=== PATIENT | female | born 2000 | race Hispanic/Latino ===

== ENCOUNTER 2022-08-13 15:54 | Emergency (ER) | payer OTHER ==
--- OUTSIDE RECORDS SUMMARY | 2022-08-13 16:01 | XMS REPORT | Continuity of Care Document ---
:2000 Author Organization [facility] t Address [facility] [place] [address] Care Team Providers Name Role Phone ANGIE MEDINA Primary Care Physician Unavailable CAMERON GONZALES Attending Clinician Unavailable Trimester, [facility] Attending Clinician Unavailable Cameron Gnozales MD Attending Clinician RAYMOND PASTOR Attending Clinician Unavailable Raymond Pastor MD Attending Clinician LULI GRACIA Attending Clinician Unavailable Ultrasound, Chandan-m Attending Clinician Unavailable Marianne Barth MD Attending Clinician MARIANNE BARTH Attending Clinician Unavailable MARIANNE BARTH Attending Clinician Unavailable Trinh Mayen CNM Attending Clinician Nieves Luli COBB Attending Clinician [phone] Provider, [facility] Temp Attending Clinician Unavailable TRINH MAYEN Attending Clinician Unavailable Doctor Unassigned, [place] Attending Clinician Unavailable Cameron Gonzales MD Admitting Clinician CAMERON GONZALES Admitting Clinician Unavailable Payers Payer Name Policy Type Policy Number Effective Date Expiration Date [facility] [id number] 2022 CHOICE [place] STAR 00:00:00 Problems Condition Condition Condition Status Onset Resolution Last Treating Co mments Source Name Details Category Date Date Treatment Clinician Date Missed Missed Disease Active 2021-07 Overview: Univer s Formattin ity of 00:00: g of this [place] 00 note Medical might be Branch different from the original. 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 Papanicola Papanicola Repeat 1 ou smear ou smear year of cervix of cervix Tobacco Tobacco Disease Active 2021-07 Overview: Univ ers smoking smoking 2- Formattin ity o f affecting affecting 00:00: [place] of this [place] 00 note Medi steven might be Branch different from the original. Quit 2 Rubella Rubella Disease Active 2021-07 Univers non-immune non-immune 2-11 it y of status, status, 00:00: [place] antepartum antepartum 00 Me dical Branch Chlamydia Chlamydia Disease Active 2021-07 Uni vers infection infection 2-11 [place] 00 [facility] Branch GBS (group GBS (group Disease Active 2021-07 U nivers B B 2-11 ity of streptococ streptococ [place] c[place] UTI cus) UTI 00 Medica l complicati complicati Br anch ng ng Allergies, Adverse Reactions, Alerts Allergy Allergy Status Severity Reaction(s) Onset Inactive Treating Comm ents Source Name Type Date Date Clinician NO KNOWN Drug Active Univers ALLERGIE Class ity of S [facility] Social History Social Habit Start Date Stop Date Quantity Comments Source ASSERTION 2022-05-10 University of 00:00:[address] [facility] History of Cigarette Smoker Universi ty of tobacco use [facility] Alcohol intake 2022-08-07 2022-08-07 Ex-drinker University of 00:00:00 00:00:00 (finding) [facility] Exposure to 2022-07-14 2022-07-24 Not sure University SARS-CoV-2 00:00:00 07:56:00 [place] [facility] (event) Branch Tobacco use and 2022-06-14 2022-06-14 Smokeless tobacco Un iversity of exposure 00:00:00 00:00:00 non-user [facility] Alcohol Comment 2022-06-14 2022-06-14 stoped for Universit y of 00:00:00 00:00:[address] [facility] Sex Assigned At [birth year] Universit y of 00:00:00 00:00:[address] [facility] Smoking Status Start Date Stop Date Source Tobacco smoking [facility] xa consumption unknown Medical Bran ch Ex-smoker 2022-06-14 00:00:00 2022-06-14 [place] [facility] 00:00:00 [facility] Medications Ordered Filled Start Stop Current Ordering Indication Dosage Frequency Signature Comments Components Source Medication Medication Date Date Medication? Clinician (SIG) Name Name lactated Yes 1000mL at 75 Univer s ringers IV 1-03 mL/hr, ity of infusion 14:45: 1[place]000 [place] 1[place]000 [place] 00 IV Medical Infusion, Branch CONTINUOUS , Starting on Sat07/10/22 at 0845, Until Discontinu ed, Routine, PACU lactated 2022- No 1000mL at 75 Unive rs ringers IV 1-03 01-03 mL/hr, ity of infusion 14:45: 17:29 1,000 mL, [place] 1,000 mL 00 :36 IV Medical Infusion, Branch CONTINUOUS , Starting on Sat07/10/22 at 0845, Until Sat07/10/22 at 1129, Routine, PACU HYDROmorphO Yes .2mg 0.2 mg, Uni vers ne 1-03 Slow IV ity of (DILAUDID) 14:34: Push, [place] injection 16 Q5MIN PRN, Medi steven 0.2 mg 10 doses, Branch Starting on Sat07/10/22 at 0834, Until Discontinu ed, Routine, Pain (scale 7-10), PACU
Us e approved by (Faculty): PACU USE -ANESTHESI A SERVICE-HY DROMORPHON E INJECTIONS FENTanyl PF Yes 25ug 25 mcg, Uni vers (SUBLIMAZE 1-03 Slow IV ity of (PF)) 14:34: Push, [place] injection 16 Q5MIN PRN, Medi steven 25 mcg 4 doses, Branch Starting on Sat07/10/22 at 0834, Until Discontinu ed, Routine, Pain (scale 4-6), PACU proMETHazin Yes 12.5mg 12.5 mg, Univers e 07-10 IV ity of (PHENERGAN) 14:34: Piggyback, [place] 12.5 mg in 16 at 200 Medical NS 50 mL IV mL/hr Branch piggyback Administer (CNR) over 15 Minutes, PRN, 1 dose, Starting on Sat07/10/22 at 0834, Until Discontinu ed, Routine, Nausea and Vomiting (N/V), PACU HYDROmorphO 2022- No .2mg 0.2 mg, Un pretty ne 07-10 Slow IV ity of (DILAUDID) 14:34: 17:29 Push, [place] injection 16 :36 Q5MIN PRN, Medi steven 0.2 mg 10 doses, Branch Starting on Sat07/10/22 at 0834, Until Sat07/10/22 at 1129, Routine, Pain (scale 7-10), PACU
Us e approved by (Faculty): PACU USE -ANESTHESI A SERVICE-HY DROMORPHON E INJECTIONS FENTanyl PF 2022- No 25ug 25 mcg, Un pretty (SUBLIMAZE 07-10 Slow IV ity o f (PF)) 14:34: 17:29 Push, [place] injection 16 :36 Q5MIN PRN, Medi steven 25 mcg 4 doses, Branch Starting on Sat07/10/22 at 0834, Until Sat07/10/22 at 1129, Routine, Pain (scale 4-6), PACU proMETHazin 2022- No 12.5mg 12.5 mg, Univers e 07-10 IV ity of (PHENERGAN) 14:34: 17:29 Piggyback, [place] 12.5 mg in 16 :36 at 200 Medical NS 50 mL IV mL/hr Branch piggyback Administer (CNR) over 15 Minutes, PRN, 1 dose, Starting on Sat07/10/22 at 0834, Until Sat07/10/22 at 1129, Routine, Nausea and Vomiting (N/V), PACU doxycycline 2022-0 2023- No 200mg 200 mg, U nivers hyclate 1-03 Oral, O.R. ity o f (Vibramycin 10:47: 11:37 [place]ING [place] capsule 33 :00 ONCE, 1 Medical 200 mg dose, Branch Starting on Sat07/10/22 at 0447, Until Sat07/10/22 at 0537, KIET, Surgery/Pr ocedure, DSU Pre-op
Reason for Anti-Infec tive: Surgical Prophylaxi s
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
Duration of therapy: within 24 hours of surgery doxycycline 2022-0 202- No 200mg 200 mg, U nivers hyclate 07-1003 Oral, O.R. ity o f (Vibramycin 10:47: 11:37 [place]ING [place] capsule 33 :00 ONCE, 1 Medical 200 mg dose, Branch Starting on Sat07/10/22 at 0447, Until Sat07/10/22 at 0537, KIET, Surgery/Pr ocedure, DSU Pre-op
Reason for Anti-Infec tive: Surgical Prophylaxi s
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
Duration of therapy: within 24 hours of surgery ibuprofen 2022-0 Yes [id number] 600mg Take 1 Univers 600 mg 1-03 tablet by ity of tablet 00:00: mouth [place] 00 every 6 Medical (six) Branch hours as needed for Pain (scale 1-3) or Pain (scale 4-6). ibuprofen 2022-0 Yes [id number] 600mg Take 1 Univers 600 mg 1-03 tablet by ity of tablet 00:00: mouth [place] 00 every 6 Medical (six) Branch hours as needed for Pain (scale 1-3) or Pain (scale 4-6). ibuprofen 2022-0 Yes [id number] 600mg Take 1 Univers 600 mg 1-03 tablet by ity of tablet 00:00: mouth [place] 00 every 6 Medical (six) Branch hours as needed for Pain (scale 1-3) or Pain (scale 4-6). ibuprofen 2022-0 Yes [id number] 600mg Take 1 Univers 600 mg 1-03 tablet by ity of tablet 00:00: mouth [place] 00 every 6 Medical (six) Branch hours as needed for Pain (scale 1-3) or Pain (scale 4-6). ibuprofen 2022-0 Yes [id number] 600mg Take 1 Univers 600 mg 1-03 tablet by ity of tablet 00:00: mouth [place] 00 every 6 Medical (six) Branch hours as needed for Pain (scale 1-3) or Pain (scale 4-6). ibuprofen 0 Yes [id number] 600mg Take 1 Univers 600 mg 1-03 tablet by ity of tablet 00:00: mouth [place] 00 every 6 Medical (six) Branch hours as needed for Pain (scale 1-3) or Pain (scale 4-6). acetaminoph 2022- Yes [id number] 650mg Take 2 Univers en 1-03 01-11 tablets by ity of (TYLENOL) 00:00: 05:59 mouth [place] 325 mg 00 :00 every 6 Medical tablet (six) Branch hours as needed for Pain (scale 4-6) for up to 7 days. acetaminoph 2022- Yes [id number] 650mg Take 2 Univers en -03 01-11 tablets by ity of (TYLENOL) 00:00: 05:59 mouth [place] 325 mg 00 :00 every 6 Medical tablet (six) Branch hours as needed for Pain (scale 4-6) for up to 7 days. No known 2021-07 No No known Unive rs medications 2-30 medication it y of 14:02: [address] No known 2021-07 No No known Unive rs medications 2-30 medication it y of 14:02: [address] ampicillin 2021-07- Yes [id number] 500mg Take 1 Univers 500 mg 2-11 12-22 capsule by ity of capsule 00:00: 05:59 mouth [place] 00 :00 every 6 Medical (six) Branch hours for 10 days. ampicillin 2021-07- Yes [id number] 500mg Take 1 Univers 500 mg 2-11 12-22 capsule by ity of capsule 00:00: 05:59 mouth [place] 00 :00 every 6 Medical (six) Branch hours for 10 days. ampicillin 2021-07- Yes [id number] 500mg Take 1 Univers 500 mg 2-11 12-22 capsule by ity of capsule 00:00: 05:59 mouth [place] 00 :00 every 6 Medical (six) Branch hours for 10 days. ampicillin 2021-07- Yes [id number] 500mg Take 1 Univers 500 mg 2-11 12-22 capsule by ity of capsule 00:00: 05:59 mouth [place] 00 :00 every 6 Medical (six) Branch hours for 10 days. ampicillin 2021-07- Yes [id number] 500mg Take 1 Univers 500 mg 2-11 12-22 capsule by ity of capsule 00:00: 05:59 mouth [place] 00 :00 every 6 Medical (six) Branch hours for 10 days. ampicillin 2021-07- Yes [id number] 500mg Take 1 Univers 500 mg 2-11 12-22 capsule by ity of capsule 00:00: 05:59 mouth [place] 00 :00 every 6 Medical (six) Branch hours for 10 days. azithromyci 2021-07- Yes [id number] 1000mg Take 2 Univers n 2-11 12-12 tablets by ity of (ZITHROMAX) 00:00: 05:59 mouth once [place] 500 mg 00 :00 now for 1 Medical tablet dose. Branch No known 2021-07 No No known Unive rs medications 2-08 medication it y of 15:12: s [address] No known 2021-07 No No known Unive rs medications 2-08 medication it y of 15:12: s [address] No known 2021-07 No No known Unive rs medications 2-08 medication it y of 15:12: s [address] Immunizations Ordered Immunization Filled Immunization Date Status Commen ts Source Name Name Influenza Virus 2022-06-14 Completed Universit y of Vaccine [facility], 00:00:00 [place] Me dical Preserv and ABX Free Bran ch 6 MO-64 YRS Influenza Virus 2022-06-14 Completed Universit y of Vaccine [facility], 00:00:00 [place] Me dical Preserv and ABX Free Bran ch 6 MO-64 YRS Influenza Virus 2022-06-14 Completed Universit y of Vaccine [facility], 00:00:00 [place] Me dical Preserv and ABX Free Bran ch 6 MO-64 YRS Influenza Virus 2022-06-14 Completed Universit y of Vaccine [facility], 00:00:00 [place] Me dical Preserv and ABX Free Bran ch 6 MO-64 YRS Influenza Virus 2022-06-14 Completed Universit y of Vaccine [facility] IM, 00:00:00 [place] Me dical Preserv and ABX Free Bran ch 6 MO-64 YRS Influenza Virus 2022-06-14 Completed Universit y of Vaccine [facility] IM, 00:00:00 [place] Me dical Preserv and ABX Free Bran ch 6 MO-64 YRS Influenza Virus 2022-06-14 Completed Universit y of Vaccine [facility] IM, 00:00:00 [place] Me dical Preserv and ABX Free Bran ch 6 MO-64 YRS Influenza Virus 2022-06-14 Completed Universit y of Vaccine [facility] IM, 00:00:00 [place] Me dical Preserv and ABX Free Bran ch 6 MO-64 YRS Influenza Virus 2022-06-14 Completed Universit y of Vaccine [facility] IM, 00:00:00 [place] Me dical Preserv and ABX Free Bran ch 6 MO-64 YRS Influenza Virus 2022-06-14 Completed Universit y of Vaccine [facility] IM, 00:00:00 [place] Me dical Preserv and ABX Free Bran ch 6 MO-64 YRS Influenza Virus 2022-06-14 Completed Universit y of Vaccine [facility] IM, 00:00:00 [place] Me dical Preserv and ABX Free Bran ch 6 MO-64 YRS Influenza Virus 2022-06-14 Completed Universit y of Vaccine [facility] IM, 00:00:00 [place] Me dical Preserv and ABX Free Bran ch 6 MO-64 YRS Influenza Virus 2022-06-14 Completed Universit y of Vaccine Quad IM, 00:00:00 [place] Me dical Preserv and ABX Free Bran ch 6 MO-64 YRS Influenza Virus 2022-06-14 Completed Universit y of Vaccine Quad IM, 00:00:00 [place] Me dical Preserv and ABX Free Bran ch 6 MO-64 YRS Influenza Virus 2022-06-14 Completed Universit y of Vaccine Quad IM, 00:00:00 [place] Me dical Preserv and ABX Free Bran ch 6 MO-64 YRS Influenza Virus 2022-06-14 Completed Universit y of Vaccine Quad IM, 00:00:00 [place] Me dical Preserv and ABX Free Bran ch 6 MO-64 YRS Influenza Virus 2022-06-14 Completed Universit y of Vaccine Quad IM, 00:00:00 [facility] [place] dical Preserv and ABX Free Bran ch 6 MO-64 YRS SARS-COV-2 COVID-19 2021-02-23 Completed Unive rsity of VACCINE - (MODERNA) 00:00:[address] [facility] SARS-COV-2 COVID-19 2021-02-23 Completed Unive rsity of VACCINE - (MODERNA) 00:00:[address] [facility] SARS-COV-2 COVID-19 2021-02-23 Completed Unive rsity of VACCINE - (MODERNA) 00:00:[address] [facility] SARS-COV-2 COVID-19 2021-02-23 Completed Unive rsity of VACCINE - (MODERNA) 00:00:[address] [facility] SARS-COV-2 COVID-19 2021-02-23 Completed Unive rsity of VACCINE - (MODERNA) 00:00:[address] [facility] SARS-COV-2 COVID-19 2021-02-23 Completed Unive rsity of VACCINE - (MODERNA) 00:00:[address] [facility] SARS-COV-2 COVID-19 2021-02-23 Completed Unive rsity of VACCINE - (MODERNA) 00:00:[address] [facility] SARS-COV-2 COVID-19 2021-02-23 Completed Unive rsity of VACCINE - (MODERNA) 00:00:[address] [facility] SARS-COV-2 COVID-19 2021-02-23 Completed Unive rsity of VACCINE - (MODERNA) 00:00:[address] [facility] SARS-COV-2 COVID-19 2021-02-23 Completed Unive rsity of VACCINE - (MODERNA) 00:00:[address] [facility] SARS-COV-2 COVID-19 2021-02-23 Completed Unive rsity of VACCINE - (MODERNA) 00:00:[address] [facility] SARS-COV-2 COVID-19 2021-02-23 Completed Unive rsity of VACCINE - (MODERNA) 00:00:[address] [facility] SARS-COV-2 COVID-19 2021-02-23 Completed Unive rsity of VACCINE - (MODERNA) 00:00:[address] [facility] SARS-COV-2 COVID-19 2021-02-23 Completed Unive rsity of VACCINE - (MODERNA) 00:00:00 [facility] Branch SARS-COV-2 COVID-19 2021-02-23 Completed Unive rsity of VACCINE - (MODERNA) 00:00:[address] [facility] SARS-COV-2 COVID-19 2021-02-23 Completed Unive rsity of VACCINE - (MODERNA) 00:00:00 [facility] Branch SARS-COV-2 COVID-19 2021-02-23 Completed Unive rsity of VACCINE - (MODERNA) 00:00:[address] [facility] SARS-COV-2 COVID-19 2021-01-26 Completed Unive rsity of VACCINE - (MODERNA) 00:00:[address] [facility] SARS-COV-2 COVID-19 2021-01-26 Completed Unive rsity of VACCINE - (MODERNA) 00:00:[address] [facility] SARS-COV-2 COVID-19 2021-01-26 Completed Unive rsity of VACCINE - (MODERNA) 00:00:[address] [facility] SARS-COV-2 COVID-19 2021-01-26 Completed Unive rsity of VACCINE - (MODERNA) 00:00:[address] [facility] SARS-COV-2 COVID-19 2021-01-26 Completed Unive rsity of VACCINE - (MODERNA) 00:00:[address] [facility] SARS-COV-2 COVID-19 2021-01-26 Completed Unive rsity of VACCINE - (MODERNA) 00:00:00 [facility] Branch SARS-COV-2 COVID-19 2021-01-26 Completed Unive rsity of VACCINE - (MODERNA) 00:00:[address] [facility] SARS-COV-2 COVID-19 2021-01-26 Completed Unive rsity of VACCINE - (MODERNA) 00:00:00 [facility] Branch SARS-COV-2 COVID-19 2021-01-26 Completed Unive rsity of VACCINE - (MODERNA) 00:00:[address] [facility] SARS-COV-2 COVID-19 2021-01-26 Completed Unive rsity of VACCINE - (MODERNA) 00:00:[address] [facility] SARS-COV-2 COVID-19 2021-01-26 Completed Unive rsity of VACCINE - (MODERNA) 00:00:[address] [facility] SARS-COV-2 COVID-19 2021-01-26 Completed Unive rsity of VACCINE - (MODERNA) 00:00:[address] [facility] SARS-COV-2 COVID-19 2021-01-26 Completed Unive rsity of VACCINE - (MODERNA) 00:00:[address] [facility] SARS-COV-2 COVID-19 2021-01-26 Completed Unive rsity of VACCINE - (MODERNA) 00:00:[address] [facility] SARS-COV-2 COVID-19 2021-01-26 Completed Unive rsity of VACCINE - (MODERNA) 00:00:[address] [facility] SARS-COV-2 COVID-19 2021-01-26 Completed Unive rsity of VACCINE - (MODERNA) 00:00:[address] [facility] SARS-COV-2 COVID-19 2021-01-26 Completed Unive rsity of VACCINE - (MODERNA) 00:00:[address] [facility] Influenza Virus 2013-04-23 Completed Universit y of Vaccine - Whole 00:00:00 [facility] Influenza Virus 2013-04-23 Completed Universit y of Vaccine - Whole 00:00:00 [facility] Influenza Virus 2013-04-23 Completed Universit y of Vaccine - Whole 00:00:00 [facility] Influenza Virus 2013-04-23 Completed Universit y of Vaccine - Whole 00:00:00 [facility] Influenza Virus 2013-04-23 Completed Universit y of Vaccine - Whole 00:00:00 [facility] Influenza Virus 2013-04-23 Completed Universit y of Vaccine - Whole 00:00:00 [facility] Influenza Virus 2013-04-23 Completed Universit y of Vaccine - Whole 00:00:00 [facility] Influenza Virus 2013-04-23 Completed Universit y of Vaccine - Whole 00:00:00 [facility] Influenza Virus 2013-04-23 Completed Universit y of Vaccine - Whole 00:00:00 [facility] Influenza Virus 2013-04-23 Completed Universit y of Vaccine - Whole 00:00:00 [facility] Influenza Virus 2013-04-23 Completed Universit y of Vaccine - Whole 00:00:00 [facility] Influenza Virus 2013-04-23 Completed Universit y of Vaccine - Whole 00:00:00 [facility] Influenza Virus 2013-04-23 Completed Universit y of Vaccine - Whole 00:00:00 [facility] Influenza Virus 2013-04-23 Completed Universit y of Vaccine - Whole 00:00:00 [facility] Influenza Virus 2013-04-23 Completed Universit y of Vaccine - Whole 00:00:00 [facility] Influenza Virus 2013-04-23 Completed Universit y of Vaccine - Whole 00:00:00 [facility] Influenza Virus 2013-04-23 Completed Universit y of Vaccine - Whole 00:00:00 [facility] Meningococcal 2013-02-27 Completed University of Polysaccharide 00:00:00 [place] Medi steven (groups A, C, Y and Branc h W-135) conjugate vaccine (MCV4P) Meningococcal 2013-02-27 Completed University of Polysaccharide 00:00:00 [place] Medi steven (groups A, C, Y and Branc h W-135) conjugate vaccine (MCV4P) Meningococcal 2013-02-27 Completed University of Polysaccharide 00:00:00 [place] Medi steven (groups A, C, Y and Branc h W-135) conjugate vaccine (MCV4P) Meningococcal 2013-02-27 Completed University of Polysaccharide 00:00:00 [place] Medi steven (groups A, C, Y and Branc h W-135) conjugate vaccine (MCV4P) Meningococcal 2013-02-27 Completed University of Polysaccharide 00:00:00 [place] Medi steven (groups A, C, Y and Branc h W-135) conjugate vaccine (MCV4P) Meningococcal 2013-02-27 Completed University of Polysaccharide 00:00:00 [place] Medi steven (groups A, C, Y and Branc h W-135) conjugate vaccine (MCV4P) Meningococcal 2013-02-27 Completed University of Polysaccharide 00:00:00 [place] Medi steven (groups A, C, Y and Branc h W-135) conjugate vaccine (MCV4P) Meningococcal 2013-02-27 Completed University of Polysaccharide 00:00:00 [place] Medi steven (groups A, C, Y and Branc h W-135) conjugate vaccine (MCV4P) Meningococcal 2013-02-27 Completed University of Polysaccharide 00:00:00 [place] Medi steven (groups A, C, Y and Branc h W-135) conjugate vaccine (MCV4P) Meningococcal 2013-02-27 Completed University of Polysaccharide 00:00:00 [place] Medi steven (groups A, C, Y and Branc h W-135) conjugate vaccine (MCV4P) Meningococcal 2013-02-27 Completed University of Polysaccharide 00:00:00 [place] Medi steven (groups A, C, Y and Branc h W-135) conjugate vaccine (MCV4P) Meningococcal 2013-02-27 Completed University of Polysaccharide 00:00:00 [place] Medi steven (groups A, C, Y and Branc h W-135) conjugate vaccine (MCV4P) Meningococcal 2013-02-27 Completed University of Polysaccharide 00:00:00 [place] Medi steven (groups A, C, Y and Branc h W-135) conjugate vaccine (MCV4P) Meningococcal 2013-02-27 Completed University of Polysaccharide 00:00:00 [place] Medi steven (groups A, C, Y and Branc h W-135) conjugate vaccine (MCV4P) Meningococcal 2013-02-27 Completed University of Polysaccharide 00:00:00 [place] Medi steven (groups A, C, Y and Branc h W-135) conjugate vaccine (MCV4P) Meningococcal 2013-02-27 Completed University of Polysaccharide 00:00:00 [place] Medi steven (groups A, C, Y and Branc h W-135) conjugate vaccine (MCV4P) Meningococcal 2013-02-27 Completed University of Polysaccharide 00:00:00 [place] Medi steven (groups A, C, Y and Branc h W-135) conjugate vaccine (MCV4P) HPV 2013-02-26 Completed University of 00:00:00 [facility] Branch HPV 2013-02-26 Completed University of 00:00:00 [facility] HPV 2013-02-26 Completed University of 00:00:00 [facility] Branch HPV 2013-02-26 Completed University of 00:00:00 [place] [facility] HPV 2013-02-26 Completed University of 00:00:00 [place] [facility] HPV 2013-02-26 Completed University of 00:00:00 [place] [facility] HPV 2013-02-26 Completed University of 00:00:00 [place] [facility] HPV 2013-02-26 Completed University of 00:00:00 [place] [facility] HPV 2013-02-26 Completed University of 00:00:[address] [facility] HPV 2013-02-26 Completed University of 00:00:00 [facility] Branch HPV 2013-02-26 Completed University of 00:00:00 [facility] HPV 2013-02-26 Completed University of 00:00:00 [facility] HPV 2013-02-26 Completed University of 00:00:00 [facility] HPV 2013-02-26 Completed University of 00:00:00 [facility] HPV 2013-02-26 Completed University of 00:00:00 [place] [facility] HPV 2013-02-26 Completed University of 00:00:00 [place] [facility] HPV 2013-02-26 Completed University of 00:00:[address] [facility] Meningococcal 2012-12-16 Completed University of Polysaccharide 00:00:00 [place] Medi steven (groups A, C, Y and Branc h W-135) conjugate vaccine (MCV4P) TDAP 2012-12-16 Completed University of 00:00:[address] [facility] HPV 2012-12-16 Completed University of 00:00:[address] [facility] Meningococcal 2012-12-16 Completed University of Polysaccharide 00:00:00 [place] Medi steven (groups A, C, Y and Branc h W-135) conjugate vaccine (MCV4P) TDAP 2012-12-16 Completed [facility] 00:00[facility] [facility] HPV 2012-12-16 Completed [facility] 00:00:[address] [facility] Meningococcal 2012-12-16 Completed [facility] Polysaccharide 00:00:00 [place] [facility] (groups A, C, Y and Branc h W-135) conjugate vaccine (MCV4P) TDAP 2012-12-16 Completed [facility] 00:00:00 [facility] HPV 2012-12-16 Completed [facility] 00:00:00 [facility] Meningococcal 2012-12-16 Completed [facility] Polysaccharide 00:00:00 [place] [facility] (groups A, C, Y and Branc h W-135) conjugate vaccine (MCV4P) TDAP 2012-12-16 Completed [facility] 00:00:[address] [facility] HPV 2012-12-16 Completed [facility] 00:00:00 [facility] Meningococcal 2012-12-16 Completed [facility] Polysaccharide 00:00:00 [place] [facility] (groups A, C, Y and Branc h W-135) conjugate vaccine (MCV4P) TDAP 2012-12-16 Completed [facility] 00:00:[address] [facility] HPV 2012-12-16 Completed [facility] 00:00:[address] [facility] Meningococcal 2012-12-16 Completed [facility] Polysaccharide 00:00:00 [place] [facility] (groups A, C, Y and Branc h W-135) conjugate vaccine (MCV4P) TDAP 2012-12-16 Completed [facility] 00:00:[address] [facility] HPV 2012-12-16 Completed [facility] 00:00:[address] [facility] Meningococcal 2012-12-16 Completed [facility] Polysaccharide 00:00:00 [place] [facility] (groups A, C, Y and Branc h W-135) conjugate vaccine (MCV4P) TDAP 2012-12-16 Completed [facility] 00:00:[address] [facility] HPV 2012-12-16 Completed [facility] 00:00:[address] [facility] Meningococcal 2012-12-16 Completed [facility] Polysaccharide 00:00:00 [place] [facility] (groups A, C, Y and Branc h W-135) conjugate vaccine (MCV4P) TDAP 2012-12-16 Completed [facility] 00:00:[address] [facility] HPV 2012-12-16 Completed [facility] 00:00:[address] [facility] Meningococcal 2012-12-16 Completed [facility] Polysaccharide 00:00:00 [place] [facility] (groups A, C, Y and Branc h W-135) conjugate vaccine (MCV4P) TDAP 2012-12-16 Completed [facility] 00:00:[address] [facility] HPV 2012-12-16 Completed [facility] 00:00:[address] [facility] HPV 2012-12-16 Completed [facility] 00:00:[address] [facility] Meningococcal 2012-12-16 Completed [facility] Polysaccharide 00:00:00 [place] [facility] (groups A, C, Y and Branc h W-135) conjugate vaccine (MCV4P) TDAP 2012-12-16 Completed [facility] 00:00:[address] [facility] Meningococcal 2012-12-16 Completed [facility] Polysaccharide 00:00:00 [place] [facility] (groups A, C, Y and Branc h W-135) conjugate vaccine (MCV4P) HPV 2012-12-16 Completed [facility] 00:00:[address] [facility] Meningococcal 2012-12-16 Completed [facility] Polysaccharide 00:00:00 [place] [facility] (groups A, C, Y and Branc h W-135) conjugate vaccine (MCV4P) TDAP 2012-12-16 Completed [facility] 00:00:[address] [facility] TDAP 2012-12-16 Completed [facility] 00:00:00 [facility] HPV 2012-12-16 Completed [facility] 00:00:00 [facility] Meningococcal 2012-12-16 Completed [facility] Polysaccharide 00:00:00 [place] [facility] (groups A, C, Y and Branc h W-135) conjugate vaccine (MCV4P) TDAP 2012-12-16 Completed [facility] 00:00:00 [facility] HPV 2012-12-16 Completed [facility] 00:00:00 [facility] Meningococcal 2012-12-16 Completed [facility] Polysaccharide 00:00:00 [place] [facility] (groups A, C, Y and Branc h W-135) conjugate vaccine (MCV4P) TDAP 2012-12-16 Completed [facility] 00:00:00 [facility] HPV 2012-12-16 Completed [facility] 00:00:00 [facility] Meningococcal 2012-12-16 Completed [facility] Polysaccharide 00:00:00 [place] [facility] (groups A, C, Y and Branc h W-135) conjugate vaccine (MCV4P) TDAP 2012-12-16 Completed [facility] 00:00:00 [facility] HPV 2012-12-16 Completed [facility] 00:00:00 [facility] Meningococcal 2012-12-16 Completed [facility] Polysaccharide 00:00:00 [place] [facility] (groups A, C, Y and Branc h W-135) conjugate vaccine (MCV4P) TDAP 2012-12-16 Completed [facility] 00:00:[address] [facility] HPV 2012-12-16 Completed [facility] 00:00:00 [facility] Meningococcal 2012-12-16 Completed [facility] Polysaccharide 00:00:00 [place] [facility] (groups A, C, Y and Branc h W-135) conjugate vaccine (MCV4P) TDAP 2012-12-16 Completed [facility] 00:00:00 [facility] HPV 2012-12-16 Completed [facility] 00:00:[address] [facility] HEPATITIS A 2005-10-23 Completed [facility] 00:00:[address] [facility] HEPATITIS A 2005-10-23 Completed [facility] 00:00:00 [facility] HEPATITIS A 2005-10-23 Completed [facility] 00:00:00 [facility] HEPATITIS A 2005-10-23 Completed [facility] 00:00:00 [facility] HEPATITIS A 2005-10-23 Completed [facility] 00:00:[address] [facility] HEPATITIS A 2005-10-23 Completed [facility] 00:00:[address] [facility] HEPATITIS A 2005-10-23 Completed [facility] 00:00:[address] [facility] HEPATITIS A 2005-10-23 Completed [facility] 00:00:[address] [facility] HEPATITIS A 2005-10-23 Completed [facility] 00:00:[address] [facility] HEPATITIS A 2005-10-23 Completed [facility] 00:00:[address] [facility] HEPATITIS A 2005-10-23 Completed [facility] 00:00:[address] [facility] HEPATITIS A 2005-10-23 Completed [facility] 00:00:[address] [facility] HEPATITIS A 2005-10-23 Completed [facility] 00:00:[address] [facility] HEPATITIS A 2005-10-23 Completed [facility] 00:00:[address] [facility] HEPATITIS A 2005-10-23 Completed [facility] 00:00:[address] [facility] HEPATITIS A 2005-10-23 Completed [facility] 00:00:[address] [facility] HEPATITIS A 2005-10-23 Completed [facility] 00:00:[address] [facility] IPV 2005-04-20 Completed [facility] 00:00:[address] [facility] Varicella 2005-04-20 Completed [facility] (varivax)(chicken 00:00:00 [place] [facility] pox) [facility] DTaP, Unspecified 2005-04-20 Completed Univers ity of Formulation 00:00:[address] [facility] IPV 2005-04-20 Completed [facility] 00:00:[address] [facility] Varicella 2005-04-20 Completed [facility] (varivax)(chicken 00:00:00 [place] [facility] DTAP 2005-04-20 Completed [facility] 00:00:[address] [facility] Polio (IPV/OPV) 2005-04-20 Completed [facility] 00:00:[address] [facility] MMR 2005-04-20 Completed [facility] 00:00:[address] [facility] HEPATITIS A 2005-04-20 Completed [facility] 00:00:[address] [facility] DTaP, Unspecified 2005-04-20 Completed Univers ity of Formulation 00:00:[address] [facility] IPV 2005-04-20 Completed [facility] 00:00:[address] [facility] Varicella 2005-04-20 Completed [facility] (varivax)(chicken 00:00:00 [place] [facility]ox[facility] DTAP 2005-04-20 Completed [facility] 00:00:[address] [facility] Polio (IPV/OPV) 2005-04-20 Completed [facility] 00:00:[address] [facility] MMR 2005-04-20 Completed [facility] 00:00:[address] [facility] HEPATITIS A 2005-04-20 Completed [facility] 00:00:[address] [facility] DTaP, Unspecified 2005-04-20 Completed Univers ity of Formulation 00:00:[address] [facility] IPV 2005-04-20 Completed [facility] 00:00:[address] [facility] Varicella 2005-04-20 Completed [facility] (varivax)(chicken 00:00:00 [place] [facility] pox) [facility] DTAP 2005-04-20 Completed [facility] 00:00:[address] [facility] Polio (IPV/OPV) 2005-04-20 Completed [facility] 00:00:[address] [facility] MMR 2005-04-20 Completed [facility] 00:00:[address] [facility] HEPATITIS A 2005-04-20 Completed [facility] 00:00:[address] [facility] DTaP, Unspecified 2005-04-20 Completed Univers ity of Formulation 00:00:[address] [facility] IPV 2005-04-20 Completed [facility] 00:00:[address] [facility] Varicella 2005-04-20 Completed [facility] (varivax)(chicken 00:00:00 [place] [facility]ox) [facility] DTaP, Unspecified 2005-04-20 Completed Univers it[facility] of Formulation 00:00:[address] [facility] IPV 2005-04-20 Completed [facility] 00:00:[address] [facility] Varicella 2005-04-20 Completed [facility] (varivax)(chicken 00:00:00 [place] [facility] pox) [facility] DTaP, Unspecified 2005-04-20 Completed [facility] it[facility] of Formulation 00:00:[address] [facility] IPV 2005-04-20 Completed [facility] 00:00:[address] [facility] Varicella 2005-04-20 Completed [facility] (varivax)(chicken 00:00:00 [place] [facility] pox) [facility] DTaP, Unspecified 2005-04-20 Completed [facility] it[facility] Formulation 00:00:[address] [facility] IPV 2005-04-20 Completed [facility] 00:00:[address] [facility] Varicella 2005-04-20 Completed [facility] (varivax)(chicken 00:00:00 [place] [facility] pox) [facility] DTaP, Unspecified 2005-04-20 Completed [facility] it[facility] Formulation 00:00:[address] [facility] IPV 2005-04-20 Completed [facility] 00:00:[address] [facility] Varicella 2005-04-20 Completed [facility] (varivax)(chicken 00:00:00 [place] [facility] pox) [facility] DTaP, Unspecified 2005-04-20 Completed [facility] ity of Formulation 00:00:[address] [facility] DTAP 2005-04-20 Completed [facility] 00:00:[address] [facility] Polio (IPV/OPV) 2005-04-20 Completed [facility] 00:00:[address] [facility] MMR 2005-04-20 Completed [facility] 00:00:[address] [facility] HEPATITIS A 2005-04-20 Completed [facility] 00:00:[address] [facility] DTaP, Unspecified 2005-04-20 Completed Univers ity of Formulation 00:00:[address] [facility] IPV 2005-04-20 Completed [facility] 00:00:[address] [facility] Varicella 2005-04-20 Completed [facility] (varivax)(chicken 00:00:00 [place] [facility]ox) [facility] DTaP, Unspecified 2005-04-20 Completed Univers it[facility] Formulation 00:00:[address] [facility] IPV 2005-04-20 Completed [facility] 00:00:[address] [facility] Varicella 2005-04-20 Completed [facility] (varivax)(chicken 00:00:00 [place] [facility] pox) [facility] IPV 2005-04-20 Completed [facility] 00:00:[address] [facility] Varicella 2005-04-20 Completed [facility] (varivax)(chicken 00:00:00 [place] [facility] pox) [facility] DTaP, Unspecified 2005-04-20 Completed Univers it[facility] of Formulation 00:00:[address] [facility] IPV 2005-04-20 Completed [facility] 00:00:[address] [facility] Varicella 2005-04-20 Completed [facility] (varivax)(chicken 00:00:00 [place] [facility] pox) [facility] DTaP, Unspecified 2005-04-20 Completed Univers it[facility] of Formulation 00:00:[address] [facility] IPV 2005-04-20 Completed [facility] 00:00:[address] [facility] Varicella 2005-04-20 Completed [facility] (varivax)(chicken 00:00:00 [place] [facility] pox) [facility] DTAP 2005-04-20 Completed [facility] 00:00:00 [facility] Polio (IPV/OPV) 2005-04-20 Completed [facility] 00:00:[address] [facility] MMR 2005-04-20 Completed [facility] of 00:00:[address] [facility] HEPATITIS A 2005-04-20 Completed [facility] 00:00:00 [facility] DTaP, Unspecified 2005-04-20 Completed Univers ity of Formulation 00:00:[address] [facility] IPV 2005-04-20 Completed [facility] 00:00:[address] [facility] Varicella 2005-04-20 Completed [facility] (varivax)(chicken 00:00:00 [place] [facility] pox) [facility] DTaP, Unspecified 2005-04-20 Completed [facility] it[facility] Formulation 00:00:[address] [facility] IPV 2005-04-20 Completed [facility] 00:00:[address] [facility] Varicella 2005-04-20 Completed [facility] (varivax)(chicken 00:00:00 [place] [facility] pox) [facility] DTAP 2005-04-20 Completed [facility] 00:00:[address] [facility] Polio (IPV/OPV) 2005-04-20 Completed [facility] 00:00:[address] [facility] MMR 2005-04-20 Completed [facility] 00:00:[address] [facility] HEPATITIS A 2005-04-20 Completed [facility] 00:00:[address] [facility] DTaP, Unspecified 2005-04-20 Completed [facility] it[facility] of Formulation 00:00:[address] [facility] IPV 2005-04-20 Completed [facility] 00:00:[address] [facility] Varicella 2005-04-20 Completed [facility] (varivax)(chicken 00:00:00 [place] [facility] pox) [facility] DTaP, Unspecified 2005-04-20 Completed Univers ity of Formulation 00:00:00 [facility] DTaP, Unspecified 2002-09-01 Completed Univers ity of Formulation 00:00:[address] [facility] DTAP 2002-09-01 Completed [facility] of 00:00:[address] [facility] Pneumococcal 7 2002-09-01 Completed [facility] of Conjugate, PCV7 00:00:00 [place] [facility] (Prevnar7) Branch DTaP, Unspecified 2002-09-01 Completed Univers ity of Formulation 00:00:[address] [facility] DTAP 2002-09-01 Completed [facility] 00:00:[address] [facility] Pneumococcal 7 2002-09-01 Completed [facility] Conjugate, PCV7 00:00:00 [place] [facility] (Prevnar7) [facility] DTaP, Unspecified 2002-09-01 Completed Univers ity of Formulation 00:00:00 [facility] DTAP 2002-09-01 Completed [facility] 00:00:[address] [facility] Pneumococcal 7 2002-09-01 Completed [facility] of Conjugate, PCV7 00:00:00 [place] [facility] (Prevnar7) [facility] DTaP, Unspecified 2002-09-01 Completed Univers ity of Formulation 00:00:00 [facility] DTaP, Unspecified 2002-09-01 Completed Univers ity of Formulation 00:00:00 [facility] DTaP, Unspecified 2002-09-01 Completed Univers ity of Formulation 00:00:00 [facility] DTaP, Unspecified 2002-09-01 Completed Univers ity of Formulation 00:00:00 [facility] DTaP, Unspecified 2002-09-01 Completed Univers ity of Formulation 00:00:[address] [facility] DTaP, Unspecified 2002-09-01 Completed Univers ity of Formulation 00:00:00 [facility] DTAP 2002-09-01 Completed [facility] 00:00:[address] [facility] Pneumococcal 7 2002-09-01 Completed [facility] of Conjugate, PCV7 00:00:00 [place] [facility] (Prevnar7) Branch DTaP, Unspecified 2002-09-01 Completed Univers ity of Formulation 00:00:00 [facility] DTaP, Unspecified 2002-09-01 Completed Univers ity of Formulation 00:00:[address] [facility] DTaP, Unspecified 2002-09-01 Completed Univers ity of Formulation 00:00:00 [facility] DTaP, Unspecified 2002-09-01 Completed Univers ity of Formulation 00:00:00 [facility] DTAP 2002-09-01 Completed [facility] 00:00:[address] [facility] Pneumococcal 7 2002-09-01 Completed [facility] of Conjugate, PCV7 00:00:00 [place] [facility] (Prevnar7) [facility] DTaP, Unspecified 2002-09-01 Completed Univers ity of Formulation 00:00:00 [facility] DTaP, Unspecified 2002-09-01 Completed Univers ity of Formulation 00:00:[address] [facility] DTAP 2002-09-01 Completed [facility] 00:00:[address] [facility] Pneumococcal 7 2002-09-01 Completed [facility] Conjugate, PCV7 00:00:00 [place] [facility] (Prevnar7) [facility] DTaP, Unspecified 2002-09-01 Completed Univers ity of Formulation 00:00:[address] [facility] DTaP, Unspecified 2002-09-01 Completed Univers ity of Formulation 00:00:[address] [facility] HIB 4 Dose Schedule 2002-04-28 Completed Unive rsity of 00:00:[address] [facility] Pneumococcal 7 2002-04-28 Completed [facility] of Conjugate, PCV7 00:00:00 [place] [facility] (Prevnar7) [facility] MMR 2002-04-28 Completed [facility] of 00:00:[address] [facility] Varicella 2002-04-28 Completed [facility] of (varivax)(chicken 00:00:00 [facility] edical pox) Branch PPD (TB) 2002-04-28 Completed [facility] of 00:00:[address] [facility] HIB 4 Dose Schedule 2002-04-28 Completed Unive rsity of 00:00:[address] [facility] Pneumococcal 7 2002-04-28 Completed [facility] of Conjugate, PCV7 00:00:00 [place] [facility] (Prevnar7) [facility] MMR 2002-04-28 Completed [facility] of 00:00:[address] [facility] Varicella 2002-04-28 Completed [facility] of (varivax)(chicken 00:00:00 [facility] edical pox) Branch PPD (TB) 2002-04-28 Completed [facility] of 00:00:[address] [facility] HIB 4 Dose Schedule 2002-04-28 Completed Unive rsity of 00:00:[address] [facility] Pneumococcal 7 2002-04-28 Completed [facility] of Conjugate, PCV7 00:00:00 [place] [facility] (Prevnar7) [facility] MMR 2002-04-28 Completed [facility] of 00:00:[address] [facility] Varicella 2002-04-28 Completed [facility] of (varivax)(chicken 00:00:00 [facility] edical pox) Branch PPD (TB) 2002-04-28 Completed [facility] of 00:00:[address] [facility] HIB 4 Dose Schedule 2002-04-28 Completed Unive rsity of 00:00:[address] [facility] Pneumococcal 7 2002-04-28 Completed [facility] of Conjugate, PCV7 00:00:00 [place] [facility] (Prevnar7) [facility] MMR 2002-04-28 Completed [facility] of 00:00:[address] [facility] Varicella 2002-04-28 Completed [facility] of (varivax)(chicken 00:00:00 [facility] edical pox) Branch PPD (TB) 2002-04-28 Completed [facility] of 00:00:[address] [facility] HIB 4 Dose Schedule 2002-04-28 Completed Unive rsity of 00:00:[address] [facility] Pneumococcal 7 2002-04-28 Completed [facility] of Conjugate, PCV7 00:00:00 [place] [facility] (Prevnar7) [facility] MMR 2002-04-28 Completed [facility] of 00:00:[address] [facility] Varicella 2002-04-28 Completed [facility] of (varivax)(chicken 00:00:00 [facility] edical pox) Branch PPD (TB) 2002-04-28 Completed [facility] of 00:00:[address] [facility] HIB 4 Dose Schedule 2002-04-28 Completed Unive rsity of 00:00:[address] [facility] Pneumococcal 7 2002-04-28 Completed University of Conjugate, PCV7 00:00:00 [place] [facility] (Prevnar7) Branch MMR 2002-04-28 Completed [facility] of 00:00:[address] [facility] Varicella 2002-04-28 Completed [facility] of (varivax)(chicken 00:00:00 [facility] edical pox) Branch PPD (TB) 2002-04-28 Completed [facility] of 00:00:[address] [facility] IPV 2002-01-28 Completed [facility] of 00:00:[address] [facility] IPV 2002-01-28 Completed [facility] of 00:00:[address] [facility] Polio (IPV/OPV) 2002-01-28 Completed Universit y [facility] 00:00:[address] [facility] IPV 2002-01-28 Completed [facility] of 00:00:[address] [facility] Polio (IPV/OPV) 2002-01-28 Completed Universit y of 00:00:[address] [facility] IPV 2002-01-28 Completed [facility] of 00:00:[address] [facility] Polio (IPV/OPV) 2002-01-28 Completed Universit [facility] 00:00:[address] [facility] IPV 2002-01-28 Completed [facility] of 00:00:[address] [facility] IPV 2002-01-28 Completed [facility] of 00:00:[address] [facility] IPV 2002-01-28 Completed [facility] of 00:00:[address] [facility] IPV 2002-01-28 Completed [facility] of 00:00:[address] [facility] IPV 2002-01-28 Completed [facility] of 00:00:[address] [facility] Polio (IPV/OPV) 2002-01-28 Completed Universit y [facility] 00:00:00 [facility] IPV 2002-01-28 Completed [facility] of 00:00:[address] [facility] IPV 2002-01-28 Completed [facility] of 00:00:00 [facility] IPV 2002-01-28 Completed [facility] of 00:00:00 [facility] IPV 2002-01-28 Completed [facility] of 00:00:[address] [facility] IPV 2002-01-28 Completed [facility] of 00:00:00 [facility] Polio (IPV/OPV) 2002-01-28 Completed Universit [facility] 00:00:[address] [facility] IPV 2002-01-28 Completed [facility] of 00:00:[address] [facility] IPV 2002-01-28 Completed [facility] of 00:00:[address] [facility] Polio (IPV/OPV) 2002-01-28 Completed Universit [facility] 00:00:[address] [facility] IPV 2002-01-28 Completed [facility] of 00:00:[address] [facility] IPV 2001 Completed [facility] of 00:00:[address] [facility] DTaP, Unspecified 2001 Completed Univers ity of Formulation 00:00:[address] [facility] IPV 2001 Completed [facility] of 00:00:[address] [facility] Hep B, Adol or Pedi 2001 Completed Unive rsity of Dosage 00:00:00 [place] [facility] DTAP 2001 Completed [facility] 00:00:[address] [facility] HIB 4 Dose Schedule 2001 Completed Unive rsity of 00:00:[address] [facility] DTaP, Unspecified 2001 Completed Univers ity of Formulation 00:00:00 [facility] IPV 2001 Completed University of 00:00:00 [facility] Hep B, Adol or Pedi 2001 Completed Unive rsity of Dosage 00:00:00 [facility] DTAP 2001 Completed University [facility] 00:00:[address] [facility] HIB 4 Dose Schedule 2001 Completed Unive rsity of 00:00:00 [facility] DTaP, Unspecified 2001 Completed Univers ity of Formulation 00:00:00 [facility] IPV 2001 Completed University [facility] 00:00:[address] [facility] Hep B, Adol or Pedi 2001 Completed Unive rsity of Dosage 00:00:00 [facility] DTAP 2001 Completed University [facility] 00:00:[address] [facility] HIB 4 Dose Schedule 2001 Completed Unive rsity of 00:00:00 [facility] DTaP, Unspecified 2001 Completed Univers ity of Formulation 00:00:00 [facility] IPV 2001 Completed University of 00:00:00 [facility] DTaP, Unspecified 2001 Completed Univers ity of Formulation 00:00:00 [facility] IPV 2001 Completed University of 00:00:00 [facility] DTaP, Unspecified 2001 Completed Univers ity of Formulation 00:00:00 [facility] IPV 2001 Completed University of 00:00:00 [facility] DTaP, Unspecified 2001 Completed Univers ity of Formulation 00:00:[address] [facility] IPV 2001 Completed University of 00:00:00 [facility] DTaP, Unspecified 2001 Completed Univers ity of Formulation 00:00:00 [facility] DTaP, Unspecified 2001 Completed Univers ity of Formulation 00:00:00 [facility] IPV 2001 Completed [facility] 00:00:[address] [facility] Hep B, Adol or Pedi 2001 Completed Unive rsity of Dosage 00:00:00 [facility] DTAP 2001 Completed [facility] 00:00:[address] [facility] HIB 4 Dose Schedule 2001 Completed Unive rsity of 00:00:00 [facility] DTaP, Unspecified 2001 Completed Univers ity of Formulation 00:00:00 [facility] IPV 2001 Completed University of 00:00:00 [facility] DTaP, Unspecified 2001 Completed Univers ity of Formulation 00:00:00 [facility] IPV 2001 Completed University of 00:00:00 [facility] IPV 2001 Completed [facility] of 00:00:00 [facility] DTaP, Unspecified 2001 Completed Univers ity of Formulation 00:00:00 [facility] IPV 2001 Completed [facility] 00:00:00 [facility] DTaP, Unspecified 2001 Completed Univers ity of Formulation 00:00:[address] [facility] IPV 2001 Completed [facility] 00:00:[address] [facility] Hep B, Adol or Pedi 2001 Completed Unive rsity of Dosage 00:00:[address] [facility] DTAP 2001 Completed [facility] 00:00:[address] [facility] HIB 4 Dose Schedule 2001 Completed Unive rsity of 00:00:[address] [facility] DTaP, Unspecified 2001 Completed Univers ity of Formulation 00:00:[address] [facility] IPV 2001 Completed University of 00:00:[address] [facility] DTaP, Unspecified 2001 Completed Univers ity of Formulation 00:00:[address] [facility] IPV 2001 Completed [facility] 00:00:[address] [facility] Hep B, Adol or Pedi 2001 Completed Unive rsity of Dosage 00:00:[address] [facility] DTAP 2001 Completed University of 00:00:[address] [facility] HIB 4 Dose Schedule 2001 Completed Unive rsity of 00:00:[address] [facility] DTaP, Unspecified 2001 Completed Univers ity of Formulation 00:00:[address] [facility] IPV 2001 Completed University of 00:00:[address] [facility] DTaP, Unspecified 2001 Completed Univers ity of Formulation 00:00:[address] [facility] IPV 2001 Completed [facility] of 00:00:[address] [facility] DTaP, Unspecified 2001 Completed Univers ity of Formulation 00:00:[address] [facility] IPV 2001 Completed [facility] of 00:00:[address] [facility] DTAP 2001 Completed [facility] 00:00:[address] [facility] HIB 4 Dose Schedule 2001 Completed Unive rsity of 00:00:[address] [facility] Pneumococcal 7 2001 Completed University of Conjugate, PCV7 00:00:00 [facility] ([facility] Polio (IPV/OPV) 2001 Completed [facility]it [facility] 00:00:[address] [facility] DTaP, Unspecified 2001 Completed Univers ity of Formulation 00:00:[address] [facility] IPV 2001 Completed [facility] of 00:00:00 [facility] DTAP 2001 Completed [facility] of 00:00:00 [facility] HIB 4 Dose Schedule 2001 Completed Unive rsity of 00:00:[address] [facility] Pneumococcal 7 2001 Completed [facility] of Conjugate, PCV7 00:00:00 [facility] (Pre[facility]ar7[facility] Polio (IPV/OPV) 2001 Completed [facility]it y of 00:00:00 [facility] DTaP, Unspecified 2001 Completed Univers ity of Formulation 00:00:00 [facility] IPV 2001 Completed [facility] of 00:00:00 [facility] DTAP 2001 Completed [facility] of 00:00:[address] [facility] HIB 4 Dose Schedule 2001 Completed Unive rsity of 00:00:[address] [facility] Pneumococcal 7 2001 Completed University of Conjugate, PCV7 00:00:00 [facility] (Prevnar7) Branch Polio (IPV/OPV) 2001 Completed Universit y of 00:00:00 [facility] DTaP, Unspecified 2001 Completed Univers ity of Formulation 00:00:00 [facility] IPV 2001 Completed [facility] of 00:00:00 [facility] DTaP, Unspecified 2001 Completed Univers ity of Formulation 00:00:00 [facility] IPV 2001 Completed [facility] of 00:00:00 [facility] DTaP, Unspecified 2001 Completed Univers ity of Formulation 00:00:00 [facility] IPV 2001 Completed [facility] of 00:00:00 [facility] DTaP, Unspecified 2001 Completed Univers ity of Formulation 00:00:00 [facility] IPV 2001 Completed [facility] of 00:00:00 [facility] DTaP, Unspecified 2001 Completed Univers ity of Formulation 00:00:00 [facility] DTaP, Unspecified 2001 Completed Univers ity of Formulation 00:00:00 [facility] IPV 2001 Completed [facility] of 00:00:00 [facility] DTAP 2001 Completed [facility] of 00:00:00 [facility] HIB 4 Dose Schedule 2001 Completed Unive rsity of 00:00:[address] [facility] Pneumococcal 7 2001 Completed University of Conjugate, PCV7 00:00:00 [place] [facility] (Prevnar7) [facility] Polio (IPV/OPV) 2001 Completed Universit [facility] 00:00:[address] [facility] DTaP, Unspecified 2001 Completed Univers ity of Formulation 00:00:00 [facility] IPV 2001 Completed [facility] of 00:00:00 [facility] IPV 2001 Completed [facility] of 00:00:00 [facility] DTaP, Unspecified 2001 Completed Univers ity of Formulation 00:00:00 [facility] IPV 2001 Completed [facility] of 00:00:00 [facility] DTaP, Unspecified 2001 Completed Univers ity of Formulation 00:00:[address] [facility] IPV 2001 Completed [facility] of 00:00:[address] [facility] DTaP, Unspecified 2001 Completed Univers ity of Formulation 00:00:[address] [facility] IPV 2001 Completed [facility] of 00:00:00 [facility] DTAP 2001 Completed [facility] of 00:00:[address] [facility] HIB 4 Dose Schedule 2001 Completed Unive rsity of 00:00:[address] [facility] Pneumococcal 7 2001 Completed University of Conjugate, PCV7 00:00:00 [place] [facility] (Prevnar7) [facility] Polio (IPV/OPV) 2001 Completed Universit y of 00:00:00 [facility] DTaP, Unspecified 2001 Completed Univers ity of Formulation 00:00:00 [facility] IPV 2001 Completed [facility] of 00:00:00 [facility] DTaP, Unspecified 2001 Completed Univers ity of Formulation 00:00:[address] [facility] IPV 2001 Completed [facility] of 00:00:00 [facility] DTAP 2001 Completed [facility] 00:00:00 [facility] HIB 4 Dose Schedule 2001 Completed Unive rsity of 00:00:00 [facility] Pneumococcal 7 2001 Completed University of Conjugate, PCV7 00:00:00 [place] [facility] (Prevnar7) [facility] Polio (IPV/OPV) 2001 Completed [facility]it y of 00:00:00 [facility] DTaP, Unspecified 2001 Completed Univers ity of Formulation 00:00:00 [facility] IPV 2001 Completed [facility] of 00:00:00 [facility] DTaP, Unspecified 2001 Completed [facility] ity of Formulation 00:00:[address] [facility] IPV 2001 Completed [facility] 00:00:00 [facility] DTaP, Unspecified 2001 Completed Univers ity of Formulation 00:00:[address] [facility] IPV 2001 Completed [facility] of 00:00:[address] [facility] Hep B, Adol or Pedi 2001 Completed Unive rsity of Dosage 00:00:[address] [facility] DTAP 2001 Completed [facility] 00:00:[address] [facility] HIB 4 Dose Schedule 2001 Completed Unive rsity of 00:00:[address] [facility] Polio (IPV/OPV) 2001 Completed Universit [facility] of 00:00:00 [facility] DTaP, Unspecified 2001 Completed Univers ity of Formulation 00:00:[address] [facility] IPV 2001 Completed [facility] 00:00:[address] [facility] Hep B, Adol or Pedi 2001 Completed Unive rsity of Dosage 00:00:[address] [facility] DTAP 2001 Completed [facility] 00:00:[address] [facility] HIB 4 Dose Schedule 2001 Completed Unive rsity of 00:00:[address] [facility] Polio (IPV/OPV) 2001 Completed [facility]it [facility] of 00:00:00 [facility] DTaP, Unspecified 2001 Completed Univers ity of Formulation 00:00:00 [facility] IPV 2001 Completed [facility] of 00:00:00 [facility] Hep B, Adol or Pedi 2001 Completed Unive rsity of Dosage 00:00:00 [facility] DTAP 2001 Completed [facility] 00:00:[address] [facility] HIB 4 Dose Schedule 2001 Completed Unive rsity of 00:00:[address] [facility] Polio (IPV/OPV) 2001 Completed [facility]it [facility] of 00:00:00 [facility] DTaP, Unspecified 2001 Completed Univers ity of Formulation 00:00:00 [facility] IPV 2001 Completed [facility] of 00:00:00 [facility] DTaP, Unspecified 2001 Completed Univers ity of Formulation 00:00:[address] [facility] IPV 2001 Completed [facility] of 00:00:00 [facility] DTaP, Unspecified 2001 Completed Univers ity of Formulation 00:00:00 [facility] IPV 2001 Completed [facility] of 00:00:00 [facility] DTaP, Unspecified 2001 Completed Univers ity of Formulation 00:00:[address] [facility] IPV 2001 Completed [facility] of 00:00:00 [facility] DTaP, Unspecified 2001 Completed Univers ity of Formulation 00:00:[address] [facility] DTaP, Unspecified 2001 Completed [facility] ity of Formulation 00:00:[address] [facility] IPV 2001 Completed [facility] 00:00:[address] [facility] Hep B, Adol or Pedi 2001 Completed Unive rsity of Dosage 00:00:[address] [facility] DTAP 2001 Completed [facility] 00:00:[address] [facility] HIB 4 Dose Schedule 2001 Completed Unive rsity of 00:00:[address] [facility] Polio (IPV/OPV) 2001 Completed [facility]it [facility] 00:00:[address] [facility] DTaP, Unspecified 2001 Completed Univers ity of Formulation 00:00:[address] [facility] IPV 2001 Completed [facility] of 00:00:00 [facility] DTaP, Unspecified 2001 Completed Univers ity of Formulation 00:00:00 [facility] IPV 2001 Completed [facility] of 00:00:00 [facility] IPV 2001 Completed [facility] of 00:00:00 [facility] DTaP, Unspecified 2001 Completed Univers ity of Formulation 00:00:[address] [facility] IPV 2001 Completed [facility] of 00:00:00 [facility] DTaP, Unspecified 2001 Completed Univers ity of Formulation 00:00:[address] [facility] IPV 2001 Completed [facility] of 00:00:00 [facility] Hep B, Adol or Pedi 2001 Completed Unive rsity of Dosage 00:00:00 [facility] DTAP 2001 Completed [facility] 00:00:[address] [facility] HIB 4 Dose Schedule 2001 Completed Unive rsity of 00:00:[address] [facility] Polio (IPV/OPV) 2001 Completed [facility]it [facility] of 00:00:00 [facility] DTaP, Unspecified 2001 Completed Univers ity of Formulation 00:00:[address] [facility] IPV 2001 Completed [facility] of 00:00:00 [facility] DTaP, Unspecified 2001 Completed Univers ity of Formulation 00:00:[address] [facility] IPV 2001 Completed [facility] 00:00:[address] [facility] Hep B, Adol or Pedi 2001 Completed Unive rsity of Dosage 00:00:00 [facility] DTAP 2001 Completed [facility] 00:00:[address] [facility] HIB 4 Dose Schedule 2001 Completed Unive rsity of 00:00:[address] [facility] Polio (IPV/OPV) 2001 Completed Universit [facility] of 00:00:00 [facility] DTaP, Unspecified 2001 Completed Univers ity of Formulation 00:00:[address] [facility] IPV 2001 Completed [facility] of 00:00:00 [facility] DTaP, Unspecified 2001 Completed Univers ity of Formulation 00:00:00 [facility] Hep B, Adol or Pedi 2001 Completed Unive rsity of Dosage 00:00:00 [facility] Hep B, Adol or Pedi 2001 Completed Unive rsity of Dosage 00:00:00 [facility] Hep B, Adol or Pedi 2001 Completed Unive rsity of Dosage 00:00:00 [facility] Hep B, Adol or Pedi 2001 Completed Unive rsity of Dosage 00:00:00 [facility] Hep B, Adol or Pedi 2001 Completed Unive rsity of Dosage 00:00:00 [facility] Hep B, Adol or Pedi 2001 Completed Unive rsity of Dosage 00:00:[address] [facility] Vital Signs Vital Name Observation Time Observation Value Comments Source Systolic blood 2022-07-24 13:55:00 115 mm[Hg] Univer [facility]ity of pressure [facility] Diastolic blood 2022-07-24 13:55:00 72 mm[Hg] Unive rsity of pressure [facility] Heart rate 2022-07-24 13:55:00 69 /min [facility]i ty of [facility] Body temperature 2022-07-24 13:55:00 35.83 Kaykay Univ ersity of [facility] Respiratory rate 2022-07-24 13:55:00 17 /min Univ ersity of [facility] Body height 2022-07-24 13:55:00 157.5 cm [facility] Body weight 2022-07-24 13:55:00 49.76 kg [facility]i ty of [facility] BMI 2022-07-24 13:55:00 20.06 kg/m2 Universi ty of [facility] Systolic blood 2022-07-10 15:00:00 119 mm[Hg] Univer sity of pressure [facility] Diastolic blood 2022-07-10 15:00:00 63 mm[Hg] Unive rsity of pressure [facility] Respiratory rate 2022-07-10 15:00:00 14 /min Univ ersity of [facility] Oxygen saturation in 2022-07-10 15:00:00 100 /min [facility] Arterial blood by [facility] Pulse oximetry Branch Heart rate 2022-07-10 14:31:00 75 /min [facility]i ty of [facility] Body temperature 2022-07-10 14:31:00 36 Kaykay [facility] ersity of [facility] Body height 2022-07-10 11:21:00 158.8 cm [facility] Body weight 2022-07-10 11:21:00 51.7 kg [facility] BMI 2022-07-10 11:21:00 20.51 kg/m2 Universi ty of [facility] Systolic blood 2022-07-10 14:31:00 116 mm[Hg] Univer sity of pressure [facility] Diastolic blood 2022-07-10 14:31:00 65 mm[Hg] Unive rsity of pressure [facility] Heart rate 2022-07-10 14:31:00 75 /min [facility] Body temperature 2022-07-10 14:31:00 36 Kaykay Univ ers[facility] of [facility] Respiratory rate 2022-07-10 14:31:00 16 /min Univ ersity of [facility] Oxygen saturation in 2022-07-10 14:31:00 100 /min University of Arterial blood by [facility] Pulse oximetry Branch Body height 2022-07-10 11:21:00 158.8 cm [facility] Body weight 2022-07-10 11:21:00 51.7 kg [facility] BMI 2022-07-10 11:21:00 20.51 kg/m2 [facility] Systolic blood 2022-07-06 15:43:00 118 mm[Hg] Univer sity of pressure [facility] Diastolic blood 2022-07-06 15:43:00 70 mm[Hg] Unive rsity of pressure [facility] Heart rate 2022-07-06 15:43:00 73 /min [facility] Body temperature 2022-07-06 15:43:00 35.83 Kaykay Univ [facility] Respiratory rate 2022-07-06 15:43:00 18 /min Univ ers[facility] of [facility] Body height 2022-07-06 15:43:00 158.8 cm [facility] Body weight 2022-07-06 15:43:00 52.39 kg [facility] BMI 2022-07-06 15:43:00 20.79 kg/m2 [facility] Systolic blood 2022-06-14 20:23:00 114 mm[Hg] Univer [facility]ity of pressure [facility] Diastolic blood 2022-06-14 20:23:00 60 mm[Hg] Unive rsity of pressure [facility] Heart rate 2022-06-14 20:23:00 75 /min [facility] Body temperature 2022-06-14 20:23:00 37 Kaykay [facility] Respiratory rate 2022-06-14 20:23:00 16 /min Univ [facility] Body height 2022-06-14 20:23:00 158.8 cm [facility] Body weight 2022-06-14 20:23:00 52.39 kg [facility] BMI 2022-06-14 20:23:00 20.79 kg/m2 [facility] Procedures Procedure Date / Time Performing Clinician Source Performed POCT TEST 2022-07-24 16:40:00 Ne Champagne [facility] SURGICAL PATHOLOGY EXAM 2022-07-10 13:53:00 [facility] DILATION AND CURETTAGE 2022-07-10 13:00:00 Cameron Gonzales [facility] HB ABO GROUPING 2022-07-10 11:52:00 Charo Smallwood Mai [facility] HB ABO GROUPING 2022-07-10 11:52:00 [facility] 2022-07-10 11:50:00 Charo Smallwood Mai [facility] CBC WITH DIFF 2022-07-10 11:50:00 Charo Smallwood [facility] CONSENT/REFUSAL FOR 2022-07-10 11:18:02 Doctor Unassigned, No [facility] DIAGNOSIS AND TREATMENT [facility] CONSENT/REFUSAL FOR 2022-07-10 11:18:02 Doctor Unassigned, No Un [facility] DIAGNOSIS AND [facility] ASSIGNMENT OF BENEFITS 2022-07-10 11:17:44 Doctor Unassigned, No [facility] ASSIGNMENT OF BENEFITS 2022-07-10 11:17:44 Doctor Unassigned, No [facility] DISCLOSURE AND CONSENT, 2022-07-06 06:01:00 Doctor Unassigned, N o [facility] MEDICAL AND SURGICAL Name Medical [facility] PROCEDURES DISCLOSURE AND CONSENT, 2022-07-06 06:01:00 Doctor Unassigned, N o [facility] MEDICAL AND SURGICAL Name Medical [facility] PROCEDURES FIRST TRIMESTER 2022-07-05 17:40:00 Trinh Mayen [facility] ULTRASOUND [facility] CBC WITH DIFF 2022-06-14 22:17:00 Trinh Mayen [facility] [place] RUBELLA SCREEN IGG 2022-06-14 22:17:[address] [facility] VZV ANTIBODY SCREEN 2022-06-14 22:17:00 Trinh Mayen [facility] HEPATITIS B SURFACE 2022-06-14 22:17:00 Trinh Mayen [facility] ANTIGEN [facility] URINE CULTURE 2022-06-14 22:17:00 Trinh Mayen [facility] GC & CHLAMYDIA 2022-06-14 22:17:00 Trinh Mayen [facility] AMPLIFIED ASSAY [facility] HIV 1/2 AG-AB WITH 2022-06-14 22:17:00 Trinh Mayen [facility] REFLEX [facility] TRICHOMONAS AMPLIFIED 2022-06-14 22:17:00 [facility] 2022-06-14 22:17:00 [facility] BASED-CP Medical Branch GALV ONLY - SYPHILIS 2022-06-14 22:17:00 Trinh Mayen [facility] IGG/IGM [facility] HB ABO GROUPING 2022-06-14 22:15:00 Trinh Mayen [facility] FLU VACC ([id number]), 6 2022-06-14 22:05:33 Trinh Mayen [facility] MO-65 YRS, .5ML, IM, Medical [facility] QUAD (FLUCELVAX) ASSIGNMENT OF BENEFITS 2022-06-14 19:33:13 Doctor Unassigned, No [facility] Name [facility] POCT TEST 2022-06-14 00:00:00 Trinh Mayen [facility] POCT URINALYSIS W/O 2022-06-14 00:00:00 Trinh Mayen [facility] SPECIFIC GRAVITY Medical Branch Encounters Start End Encounter Admission Attending Care Care Encounter Source Date/Time Date/Time Type Type Clinicians Facility Department ID 2022-08-07 2022-08-07 Outpatient Catalina GONZALES [facility] [id number] Univers 11:00:00 14:04:13 CAMERON ity [facility] 2022-08-07 2022-08-07 Telemedici Trimester, [facility] Res-1s t UNIVERSIT 1.2.840.114 [id number] Univers 11:00:00 14:04:13 ne Visit Cameron Gonzales [facility] HEALTH 350.1.13.10 it[place] of [place] [id number] [facility] [address] Branch 2022-07-24 2022-07-24 Outpatient R LAITH [facility] [id number] Univers 08:00:00 08:38:15 RAYMOND ity [facility] 2022-07-24 2022-07-24 Routine Trimester, [facility] Res-1st UNIVERSIT 1.2.840.114 [id number] Univers 08:00:00 08:38:15 Raymond Pastor [facility] 350.1.13.10 ity of Visit [place] [id number] [facility] [address] 2022-07-10 2022-07-10 Hospital VLADIMIR Gonzales 1.2.003.811 [id number] Univers 05:15:00 09:19:00 Encounter Cameron ASHRAF 350.1.13.10 ity of [facility] 4.2.7.2.686 Aaron as [phone] [facility] 104 Branch 2022-07-10 2022-07-10 Outpatient Catalina GONZALES [facility] 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 2022-07-06 2022-07-06 Outpatient R CHRISTIAN [facility] [id number] Univers 09:15:00 11:21:45 CAMERON ity of [facility] 2022-07-06 2022-07-06 Routine Trimester, [facility] Res-1st UNIVERSIT 1.2.840.114 [id number] Univers 09:15:00 11:21:45 Christian Cameron L Y HEALTH 350.1.13.10 it[place] [id number] [address] 2022-07-05 2022-07-05 Gas [facility]er [facility] 1.2 .840.114 [id number] [facility] 11:30:00 12:00:00 Visit Marianne Barth SUPERVISOR NET MAKING 350.1.13.10 ity of REGIONAL 4.2.7.2.686 Aaron as MATERNAL [id number] Med ical & CHILD [address] [facility] 2022-07-05 2022-07-05 Outpatient P MARIANNE BARTH [facility] [id number] Univers 11:30:00 11:30:00 MARIANNE BARTH itilan of [facility] 2022-07-05 2022-07-05 Case Faheem [facility] 1.2.840.114 [id number] Univers 00:00:00 00:00:00 Management Trinh Hammer SUPERVISOR NET MAKING 350.1.13.10 ity of REGIONAL 4.2.7.2.686 Aaron as MATERNAL [id number] Med ical & CHILD 107 [facility] 2022-06-20 2022-06-20 [facility] 1.2.840.114 [id number] Univers 00:00:00 00:00:00 Luli Taylor SUPERVISOR NET MAKING 350.1.13.10 ity of REGIONAL 4.2.7.2.686 Aaron as MATERNAL [phone] Med ical & CHILD 107 [facility] 2022-06-19 2022-06-19 Telephone Faheem [facility] 1.2.840.114 [id number] Univers 00:00:00 00:00:00 Trinh Harman SUPERVISOR NET MAKING 350.1.13.[address] [facility] 4.2.7.2.686 Aaron as MATERNAL [phone] Med ical & CHILD [address] [place] [address] 2022-06-17 2022-06-17 Case Faheem [facility] 1.2.840.114 [id number] Univers 00:00:00 00:00:00 Management Trinh Hammer SUPERVISOR NET MAKING 350.1.13.[address] [facility] 4.2.7.2.686 Aaron as MATERNAL [phone] Med ical & CHILD [address] [place] [address] 2022-06-14 2022-06-14 [facility] 1 .2.840.114 [id number] Univers 14:00:00 16:16:28 AkinLuli arroyo SUPERVISOR NET MAKING 350.1.13 .10 ity of Visit Trinh Mayen [facility] 4.2.7.2.686 [place] MATERNAL [id number] [facility] & CHILD [address] [place] [address] 2022-06-14 2022-06-14 Outpatient R FAHEEM [facility] [id number] Univers 14:00:00 16:16:28 TRINH ity of [facility] 2022-06-14 2022-06-14 Orders Doctor EDGARDO 1.2.840.114 [id number] Univers 00:00:00 00:00:00 Only Unassigned, PASCALE 350.1.13.10 ity of [place] [facility] 4.2.7.2.686 Aaron as [id number] [address] Results Test Description Test Time Test Comments Results Result Comments Source POCT TEST 2022-07-24 16:40:00 Test Item Value Reference Range Interpretation Comme nts POCT PREG (test code = 1605) Positive faint On board controls acceptable with C Line (test code = 3574) Yes POCT PREG LOT # (test code = 3575) POCT PREG TEST DATE (test code = 3576) Lab Interpretation (test code = 30748-1) Abnormal [id number] 16:40:00 Test Item Value Reference Range Interpretation Comments POCT PREG (test code = 1605) Positive faint On board controls acceptable with C Yes Line (test code = 3574) POCT PREG LOT # (test code = 3575) POCT PREG TEST DATE (test code = 3576) Lab Interpretation (test code = Abnormal 11579-1) [facility] [id number] 18:42:29 Test Item Value Reference Range Interpretation Comments Case Report (test code Surgical Pathology ? ? = [id number]) ?Case: [id number] ? Authorizing Provider: ?Cameron Gonzales MD ? ? ? Collected: ? 07/10/2022 0753 ?Ordering Location: ? ? [facility] OR ? Received: ?07/10/2022 0900 ? Department ? Pathologist: ? Sadaf Skelton, ? MD ? Specimen: ? ?PRODUCTS OF CONCEPTION ? Final Diagnosis (test b9sxzHOxFQBdm3uqINRtbY code = 6762490339) FuZzEwMzNcZnRuYmpcdWMx IHtccnRmMVxlcGljMTAxMD TaRH4giVvweWf1cOzbZVMs ypL5iHBlOAaib1izAGK3x8 gomvpoUCWkGKbyOz9wcUHn zQfhGzYhKLJoNHb3nQ83MN PtdJ1pmGCgWYl5NQDaaTJq noFyZnBiTGSzwZAfkPL9OS NfVK4wjwwsPHdhMTsnZEBq huN9YVOchDRtO1XsTBXfNE 7kvtduIFR6YIstELKxOQE6 ObObULEjk1Jizlc9HxCklS FyZFxwbGFpblxmczIwXHBh ukNWGwPHCBSOCL8GRZYIWl KPLcJGUNWGDeLHMAVZPH5Y OlxwYXIgICAgICAtIENIT1 UNZ59TVnIZKOdULNppQDEG OSTCKOPQEuPoI6OMYvCCP6 LBFYROZA5JRYPNSVMZSWHZ OfCLU8FNXnXlQ3nARHzjTH KkHZFaZUWdMZEVAy0YYVDI DmFPYiRZR48EKJEGGU3MOM BhclxwYXJccGFyfXtccnRm APoga3OpL4TrRdBlDFbsyy NpXGRlZmxhbmcxMDMzXGZ0 bmJqXHVjMVxkZWZmMHtcZm 3yaHUlfLscHtVxPMGrh3vs dqWEMCcaXwJuE920YNLwWK gvp6rtw7VhUXOruUIst3I6 GXYEywcooPz1k9itOxJcSe N6cKJsMAsjP7pwfjFixVKr H2LjvBUqoDn4dEajT15ev1 A8BxdrE5rcZKAzXBQgF7Jh MN3zPUViZhq2WQG8JWI6ZQ JsIGJsF8DbJQ2xRPTqlNXo THk7k1icqPclOIGnSOT3j0 yeOJuzpoR2CK7wvz8kbTp8 a6krooSxDBYgUKUnvXZSPB KcO9TzrMolId7fcUg5wTwt LixmBRD6Yjz5NN9yza50jt n4vAggKNIyalffBmK7SEpm ENIemdtpWBs8TTzfQWJqzU T3KQYrtXAaX3HyLNViPZ1o cjp0FFN1ZDukCYFvQmR0FL YcuKYkQCCfuQfbIVwln482 ZPC7VuLhEJ0uT5Rgi8O1qS 9maXRcZGVmdGFiNzIwXGZv bn4nyEObQGcvx1WoABO5bn E0jELgoRFeFTKaHA96Fpnw h5RpJmotKRW3NDHotcBzh4 Xmb4rcXnPnfuMnF0bcV5Ah ZHJoZWFkXHBnYnJkcmZvb3 Aos3LcxBByzJc8v3sxJAQd BYApzGimy0tdASD0GCLeM7 B3tTXqy4awSDljDONzmXM0 qgL7JABmwUOyY6GqbH4aLC VaCD8kyyo3q1llFWY3DQyq DLMxCjL5lwA0WKBqaSNoTE XmxDepQZskp657EPP2LyXv WOPdn9HiN5VkpIjdU87jmQ aeB24mJAPgkRlocX0llDss iX4eBkAqQxPlCUeyzGjipC FpblxmMVxmczIwXGxhbmcx UUJoQPwdI3ckGsPfOMPahQ ieXUzxw4LoOLZwHOXySrgu czIwXHBhciBJIGhhdmUgcG Yym90jXBgxtNYqNTYfOGsx ETVyyWrzx5TuS1ioZL4tD9 NsaWRlcyBhbmQgYWdyZWUg j2y9gKPvdRulc5IufTExYM 03waGfGLBbRKI7WYAjh5xv AK40pahdLzDznO55ttZvcf KpNZHhf0alO1axqKEuj6Yr c1RpkmEhJRjgl5ZgIN8mqB XsnzmqkDE1ATSeyPVgzjXh pgA8fHegNSAbsE3ceH9chS yytE2dGjDeYhDtWIogHG8p BZRgC2wawIAdZXSeXDNsA6 ooYrWbuK0lrAjtJlnwviN7 NZAnev56 Clinical Information Missed (test code = [O02.1] 5163098211) Gross Description (test n4yrhJXtXTCaeYYGFPYcBC code = 6007159617) NwAO0weOkyeDe2yIipFASn ovZ3vPKtIYqgy2ybQWI2t0 llbiANClxkZWZmMVxwYXBl pgmwUhJ7BMekVUNrtkccXP l1GKfaRDMswDM0LVRpdDAn U8UnYNFdVX9iiny3TZG3BH bhXFCnMaC5OXJcQcFiQajf IUs8OOAqpqL4Een4OIHmFR LpgSOxp9C2AYlqguhrTCHj hSMaL129TDcmv5EspTVdMT pccGFyZCANCntcKlxlcGlj l4AbrWVfCSvrDOXtBOKqPK jlhtxlDEv1VAWuQWmtzRDw SP2suOzvXgkikGppa3JdiW BcXGlkIDUxMDAyIFxcZGIg GY3TPzFlFQMuJkOmEUvaAX b0RSe8SZ8LPbWtGOCwCIX2 WDWnPPGmXQo9KNbkKO2LRT C8DMgjQmJ6EYNpOZWuDWOh UOb6GOMfCDwoAWPiqODaHH jsUiFiHFXrXCbxsTXzPG6c fVxwbGFpblxmczIwIFNQRU VXRAOPQSXyrDXtOD5OASRc YMwyVPQxiLMGIOG8QF9sNX ANClxsdHJwYXJcbGluMFxy kW7vVD6NTMr4glKyEJSaFp ZkJ4EaX0mdRA8wBCLfumJr ZWNlaXZlZCBmcmVzaCBsYW JlbGVkIHdpdGggdGhlIHBh oPkbrzGjnoDfGK7uAMETZI IsaA9jASIsFBCaih8wiSK9 elWjInIvd00oWZN1qI6tMn FsxbCeO63ju3ntvTUxq3Lp NA1mCGuzslTmNLRfSL6yNU 96vLBfvEpuBJScx69hsUX3 UC7flLbhdrEalxWqY1HmPE Uay09cvRF5jWSjlWReHmXn J04aifAqKEllgBlrSKUowC hlZCBwdXJwbGUtcmVkIGZy EJWpUMLle96bDAQng3JmAN CwAnWkePP8VmIraGUtLjKo F33ppB2eZBiqidUzNFYhYD 6hDJ2mDJpms6KbDAUrnLOg HDVjASdjLW37nkRdnfDlii cmfIFieDxtNH8vDGReL6wf xTAbJA8xYZJly0RvEitgKA Sgo6Jhy43hOjQ6gUxdnJZy bfBvA4Fhb1LsiBZyXXBcsK zltCObQlLiLkPkcnWwED84 KLFkfdJhe7SvfGkvxqZjSV Xgmq45vV2poJftScD2HORa FvU3bVDohQ28LQlfn5SgX8 flQE2gYTYvEKH5Vg0ybLZo YSAgwhRzsB5sq3zghDwur3 DnFAAvK3XhbL9fKOFdHZNa XGxpbmUgXGxpbmUgSnVsaW QkVRTKtGbdpeM6PTTNRZSp QVNDUClcbGluZSBcbGluZS ANClxlcGljTmVzdERvYzBc ktD0KLJmpOVhYUB9CR1uJW QxycchVQVxBCYcWOT9UWwr dF10dMPjHGQmTNLbpIWwsH wrvJHulsFJHryvzJ7zOoKy l1vzoGe1QWGSXcsfiZSoiy wdkbH4JFCfi3hoqUkup6Ht pIBcCT7dsRjadE4vRiUlVt ANCn0= Disclaimer (test code = v0wubBAeFJRvj0lzIRDbfJ [id number]) FuZzEwMzNcZnRuYmpcdWMx BSkjesAyUZnlo6WlB6LpDk AwMFxhbnNpXGRlZmxhbmcx PQNuSUH0flNoKAWcCOacXE VaOTyuTm5aaAUnoGrzQmCn DKMws5idhgLGNNxgVpVfW6 64UQDxTRzzc3ijp7NlJBTv zFWkt8W3GKOMpgayeCw7gZ jaC77ez3J3PamxW3fiSDLj ZROnO4UuLX1aCZVyPqx5FW U2DXS8SMFqBKPlJ1SsJF3r DIGzjGXvPEi6u5wtyHrrPR RdZNS2k7opDHctgmHaSE6w pr2bdOw3t3jmphSjPNNaFT RssWYUAEWiA4LnqEbbIi5p cSt3xZutLarnKCW5Dxv1MF 5bnp85rfc2xTbiTEGugtvm UvL2GLhrBGSybpgdHVw0AX pbOFVykNE3GMHrtHPjJ8By JXFkID5qgdg8QNM2VAjpJQ FzZxY5JJJxiOWrNAPdwEmi DWwjq166OWC1FkGxLD1kO4 Cnr5V0kB4xqIByBJWwfXAx ChUzSIQuax2hcBRsDLtna3 OySNW1orA8yZPowSVxLQTi ST09Puidw4OsXtrrf9VoU8 4rgQF9TYwyu3hsLY7hVeC5 kfOwWOtlu8xnlC5qMnP7LD vyWL4jMZ8zFDDycV5wutvc XHBnYnJkcmhlYWRccGdicm VrYu7shBbvNQZ9JXdxX8th kU7tGtC0TZebB6bqvS6lVT m3DFwwsWG5MUFatT4uXY8u zmpfg7wiWKwxZSxoHKUggq P0nfS8JLAsjNMmE1DdeY2k TTUlUD3anbkof7rkATY1JX nbYXEzCVA0MwXsRPPcp7Ky lwx1AaLia5HcxZMoMEenI4 2nt320DDDlxfZkR8eljJOi ooeulQXhkhqpWSsgkoY4PW GejwKba8FuSQNuHYO8ISqr SVefmRPfBHQllCoqa2urO2 RscGFyXHBsYWluXGYxXGZz MjBcbGFuZzEwMzNcaGljaF abSNrwAaKfKHVvYRmkV9pn VrPzW7ClYCWkPhWscBXwH9 ggVGhpcyByZXBvcnQgbWF5 FZpaF2j4PHWurcPhbKl6du LiCpIjVFPiUCD6UMrotTDk YVMsy1RpzepphQXqXb8sqY TnKVEvzC3uQOHwRCAnNZra KR5krCb5DOLAoTZkhOCtLt IIWPMdXR61kzKoGZUBjrdh y9S1RRnbGMSvt4OfoWZxX9 ztx4YvCMZtj03kNI5ko8Y1 a4lpYCA1GF3mt7TdHOXkxI LvsFXzSNEyp0Rfonqqg7Mn QWFapzWzi1VyKPVrllWfoB WjVTFvmnIhxo2ufnHrJSPk MYYuB6LlgxwptHtzozCwTD Nmge3noyUeACF3ZVEKZWPz PIYrt2RfiK0ahDQADFV1vL Ibzf0mhmPSvEWmRVKiwz10 ANZhUV1zB9hiHHMaCMWvfz FdhEIdy8FzCORnrEG8pRAn QX8UMrBIm75fHGOaIXDLam WsOHOxaBuqtGR6nmX1yK8o IChGREEpLlx+IFRoZSBGRE PuOC3esrKqc7DfyoEqfOyn IBJcdXLvj3EbcHQgw3SdxV fvm1WdsEEhjYGiGM4xMPYy clxwYXIgVVRNQiBMYWJvcm V4h9ZmGUEyJSDrQKZ6fHdg yqa8THBnnE0pRTWoM1dytx uzHGlpPSXot5VcfH3oqHWP mLVyc6PxxZSkmNWJpQIqWF 1nvhJpEBeJWLhYSCE1skUd RGTdb9JaZKaiM7twM02mnL iuaQs3aMI9WXQ4kG2fVvk+ IFxwYXJccGFyIEFwcHJvcH JiPMLcfDolijIjK6SovdGn oC9atCDkjvGlUM3uOD6kH8 L0yHYaMTPjjvUtw0upZGsg dmUgYmVlbiByZXZpZXdlZC Zum5IxBFdyVAS3YJpvuvIo bmNsdWRpbmcgSCZFLCBTcG UyxHMjXNI9CMcrepZqefUx QT4mrV7lzPesyV5kuCUfkA G0cpqdYULkSJSebGodRDHk UB5jiLOuBYCrgoYFeAoumA TxqX7nF8AdVYSlXHTujz2v EDNplK7uILcts2QhsybaIB DtPGEqLDKauxOdaf0zIXKl eTFWRT6CBMruwLIde2Olpo ByK4jOFGR8LJTxVdZrEvoc GQNbxHQjgSQzQLIvkw83JK DzzC9hlGwiAVNrpP2itD2u wOswrQ7tSoRiCtYaSDqiAD 6eSZPtH9oqhIBmEXRrNAVi P1rgEjBhgV1pjSwwFSudUc LwNlWcCWqaNUM5pU== Embedded Images (test code = 8266121089) [facility] This is a pre-surgical type and screen. ONCE [id number] 12:53:05 Test Item Value Reference Range Interpretation Comments ABO & RH (test code O POSITIVE Performe d at [facility] = 20) Laboratory [facility] [place] [address]Pnsj Free: [phone] A No. [id number] IAT (test code = Negative Performed a t [facility] 1185) Laboratory [facility] [address] [address]Rpam Free: [phone] A No. [id number] [facility] - This is a pre-surgical type and screen. ONCE [id number] 12:53:05 Test Item Value Reference Range Interpretation Comments ABO & RH (test code O POSITIVE Performe d at [facility] = 20) Laboratory [facility] [address] [address]Zadw Free: [phone] A No. [id number] IAT (test code = Negative Performed a t [facility] 1185) Laboratory [facility] [address] [address]Feok Free: [phone] A No. [id number] [facility] WITH [id number] 12:08:25 Test Item Value Reference Range Interpretation Comments WBC (test code = See_Comment [Automated 3990-2) message] The sy stem which generated this result transmitted reference range : 4.30 - 11.10 10*3/?L. The reference range was not used to interpret this result as normal/abnormal . RBC (test code = See_Comment [Automated 922-8) message] The sy stem which generated this result transmitted reference range : 3.93 - 5.25 10*6/?L. The reference range was not used to interpret this result as normal/abnormal . HGB (test code = 14.1 g/dL 11.6-15.0 718-7) HCT (test code = 39.9 % 35.7-45.2 4544-3) MCV (test code = 86.7 fL 80.6-95.5 787-2) MCH (test code = 30.7 pg 25.9-32.8 785-6) MCHC (test code = 35.3 g/dL 31.6-35.1 H 786-4) RDW-SD (test code = 37.2 fL 39.0-49.9 L 03484-4) RDW-CV (test code = 11.8 % 12.0-15.5 L 788-0) PLT (test code = See_Comment [Automated 777-3) message] The sy stem which generated this result transmitted reference range : 166 - 358 10*3/ ?L. The reference r jennifer was not used to interpret this result as normal/abnormal . MPV (test code = 8.6 fL 9.5-12.9 L 90780-0) NRBC/100 WBC (test See_Comment [Automat ed code = 1516378622) message] The system which generated this result transmitted reference range : 0.0 - 10.0 /100 WBCs. The refer ence range was not u sed to interpret th is result as normal/abnormal . NRBC x10^3 (test code See_Comment [Auto mated = 1801482806) message] The s ystem which generated this result transmitted reference range : 10*3/?L. The reference range was not used to interpret this result as normal/abnormal . GRAN MAT (NEUT) % 70.7 % (test code = 770-8) IMM GRAN % (test code 0.70 % = 7961218796) LYMPH % (test code = 16.7 % 736-9) MONO % (test code = 9.1 % 5905-5) EOS % (test code = 2.2 % 713-8) BASO % (test code = 0.6 % 706-2) GRAN MAT x10^3(ANC) 5.76 10*3/uL 1.88-7.09 (test code = 9525990465) IMM GRAN x10^3 (test 0.06 10*3/uL 0.00-0.06 code = 1666931754) LYMPH x10^3 (test code 1.36 10*3/uL 1.32-3.29 = 731-0) MONO x10^3 (test code 0.74 10*3/uL 0.33-0.92 = 742-7) EOS x10^3 (test code = 0.18 10*3/uL 0.03-0.39 711-2) BASO x10^3 (test code 0.05 10*3/uL 0.01-0.07 = 704-7) Lab Interpretation Abnormal (test code = 75860-8) [facility] WITH [id number] 12:08:25 Test Item Value Reference Range Interpretation Comments WBC (test code = See_Comment [Automated 4390-2) message] The sy stem which generated this result transmitted reference range : 4.30 - 11.10 10*3/?L. The reference range was not used to interpret this result as normal/abnormal . RBC (test code = See_Comment [Automated 299-8) message] The sy stem which generated this result transmitted reference range : 3.93 - 5.25 10*6/?L. The reference range was not used to interpret this result as normal/abnormal . HGB (test code = 14.1 g/dL 11.6-15.0 718-7) HCT (test code = 39.9 % 35.7-45.2 4544-3) MCV (test code = 86.7 fL 80.6-95.5 787-2) MCH (test code = 30.7 pg 25.9-32.8 785-6) MCHC (test code = 35.3 g/dL 31.6-35.1 H 786-4) RDW-SD (test code = 37.2 fL 39.0-49.9 L 56415-8) RDW-CV (test code = 11.8 % 12.0-15.5 L 788-0) PLT (test code = See_Comment [Automated 957-3) message] The sy stem which generated this result transmitted reference range : 166 - 358 10*3/ ?L. The reference r jennifer was not used to interpret this result as normal/abnormal . MPV (test code = 8.6 fL 9.5-12.9 L 39529-3) NRBC/100 WBC (test See_Comment [Automat ed code = 0980590241) message] The system which generated this result transmitted reference range : 0.0 - 10.0 /100 WBCs. The refer ence range was not u sed to interpret th is result as normal/abnormal . NRBC x10^3 (test code See_Comment [Auto mated = 3419530320) message] The s ystem which generated this result transmitted reference range : 10*3/?L. The reference range was not used to interpret this result as normal/abnormal . GRAN MAT (NEUT) % 70.7 % (test code = 770-8) IMM GRAN % (test code 0.70 % = 3860251484) LYMPH % (test code = 16.7 % 736-9) MONO % (test code = 9.1 % 5905-5) EOS % (test code = 2.2 % 713-8) BASO % (test code = 0.6 % 706-2) GRAN MAT x10^3(ANC) 5.76 10*3/uL 1.88-7.09 (test code = 8267999343) IMM GRAN x10^3 (test 0.06 10*3/uL 0.00-0.06 code = 4192390768) LYMPH x10^3 (test code 1.36 10*3/uL 1.32-3.29 = 731-0) MONO x10^3 (test code 0.74 10*3/uL 0.33-0.92 = 742-7) EOS x10^3 (test code = 0.18 10*3/uL 0.03-0.39 711-2) BASO x10^3 (test code 0.05 10*3/uL 0.01-0.07 = 704-7) Lab Interpretation Abnormal (test code = 81728-5) [facility] [id number] 10:27:35 Test Item Value Reference Range Interpretation Comments ABO & RH (test code O POSITIVE Performe d at [facility] = 20) Laboratory Serv [facility] [address] [facility] s [id number] Free: [phone] A No. [id number] IAT (test code = Negative Performed a t [facility] 1185) Laboratory Serv [facility] [address] [facility] s [id number] Free: [phone] A No. [id number] [facility] W/O SPECIFIC [id number] 20:17:00 Test Item Value Reference Range Interpretation Comments POCT PH U (test code = 3254) 6 mg/dl 5-8 POCT U LEUK EST (test code = 1+ Negative - Negative 3263) POCT U NIT (test code = 3262) negative Negative - Negative POCT U PROT (test code = 3259) trace Negative - Negative POCT U GLU (test code = 3256) negative Negative - Negative POCT U KETONE (test code = 3258) negative Negative - Negative POCT U BLD (test code = 3257) trace Negative - Negative [facility] [id number] 20:17:00 Test Item Value Reference Range Interpretation Comments POCT PREG (test code = 1605) Positive On board controls acceptable with C Yes Line (test code = 3574) POCT PREG LOT # (test code = 3575) POCT PREG TEST DATE (test code = 3576) [facility]
--- NOTE | 2022-08-13 18:05 | RAD REPORT ---
EXAM DESCRIPTION: CT - Facial Bones W/ Mpr - 08/13/2022 5:29 pm CLINICAL HISTORY: Facial injury with pain COMPARISON: None TECHNIQUE: Computed axial tomography of the face was obtained. Coronal and sagittal reconstruction w as performed. All CT scans are performed using dose optimization technique as appropriate and may include automated exposure control or mA/KV adjustment according to patient size. FINDINGS: A fracture is not seen. A TMJ dislocation is not noted. The globes are intact. Fluid within the sinuses is not seen. IMPRESSION: Negative for a facial fracture.
--- NOTE | 2022-08-13 18:14 | RAD REPORT ---
EXAM DESCRIPTION: CT - Head C Spine Mpr Wo Con - 08/13/2022 5:29 pm CLINICAL HISTORY: Head and neck injury status post fall. Head and neck pain COMPARISON: None. TECHNIQUE: Computed axial tomography of the head and cervical spine was obtained. Sagittal and coronal reconstruction was performed. All CT scans are performed using dose optimization technique as appropriate and may include automated exposure control or mA/KV adjustment according to patient size. FINDINGS: An intracranial bleed is not seen. The ventricles are normal in caliber. No significant hypodensity within the brain. An extra-axial fluid collection is not noted. Fluid within the visualized sinuses and mastoids is not seen A cervical fracture is not visualized. Loss of the normal lordosis of the cervical spine. Widening of the spinous processes of C4 and C5 as well as C5 and C6. IMPRESSION: No acute intracranial abnormality is seen. A cervical fracture is not visualized. Widening of spinous processes of C4 and C5 as well as C5 and C6. This can be a normal finding for the patient. Also, a ligamentous injury can have this appearance. If the patient has clinical symptoms t o suggest this then MRI would be recommended
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
[2022-08-13 19:47] VITALS: TEMP 98.8; O2SAT 100
[2022-08-13 19:48] VITALS: BP 125/85
== END 2022-08-13 19:13 | disposition home or self-care (01) ==
LOC: ER 15:54
DX: S00.91XA Abrasion of unspecified part of head, initial encounter (principal)
CPT/HCPCS: 70450; 70486; 72125; 76377